=== PATIENT | male | born 1945 | race Caucasian/White ===

== ENCOUNTER 2023-07-25 11:15 | Outpatient (AMB) | payer MEDICARE, SELFPAY ==
--- NOTE | 2023-07-25 11:26 | HO.NEPHOV ---
HPI HPI Comments History of Present Illness Details I would the pleasure of seeing Mik in follow-up of his chronic kidney disease and hypertension. He has been having issues with his arthritis but is closely followed up by his [employer]. He also has been having atypical chest pains which has been worked up. He believes he has some acid reflux and is on PPI. His blood pressure is under good control with amlodipine and losartan. His renal functions have been stable. He maintains good hydration and seldom uses nonsteroidal anti-inflammatories. [facility] Medical History (Updated 08/11/23 @ 17:31 by Austin Fallon MD) Hypertension CKD (chronic kidney disease) stage 3, GFR 30-59 ml/min Surgical History (Updated 07/25/23 @ 11:30 by Alanis Ohara MA) History of vasectomy Social History (Updated 07/25/23 @ 11:30 by Alanis Ohara MA) Alcohol intake: never Patient Tobacco Use Status: Former Tobacco user Vital Signs 07/25/23 11:27 Height 5 ft 10 in Weight 182 lb 6 oz BMI 26.2 BP 130/60 Blood Pressure Location Lt brachial Position Sitting Pulse 100 Pulse Source Pulse Oximeter Pulse Oximetry (%) 95 Oxygen Delivery Method Room Air Physical Exam Vital Signs: Last Vital Signs Pulse 100 07/25/23 11:27 BP 130/60 07/25/23 11:27 Pulse Ox 95 07/25/23 11:27 Oxygen Delivery Method Room Air 07/25/23 11:27 BMI result Body Mass Index 26.2 Const General: comfortable and no acute distress Orientation/consciousness: patient oriented x3 HEENT Head: Yes normocephalic Mouth: Normal oral and palatal mucosa present Eyes EOM: EOMs intact bilaterally Neck Neck: Yes supple Resp Auscultation: clear to auscultation bilaterally Cardio Jugular venous distension: no JVD Rate: regular rate Heart sounds: Murmur heart sound present GI Palpation (GI): Soft to palpation Auscultation: normal bowel sounds General: Yes no CVA tenderness Back/Spine/Pelvis Back: no CVA tenderness Skin General skin exam: no rashes or lesions noted Neuro General: patient oriented x3 and moves all extremities Extrem General: Yes no pedal edema Assessment & Plan Assessment & Plan (1) CKD (chronic kidney disease) stage 3, GFR 30-59 ml/min: Code(s): N18.30 - Chronic kidney disease, stage 3 unspecified Qualifiers: Chronic kidney disease stage 3 subtype: stage 3a (GFR 45-59) Qualified Code(s): N18.31 - Chronic kidney disease, stage 3a (2) Hypertension: Code(s): I10 - Essential (primary) hypertension Qualifiers: Hypertension type: primary hypertension Qualified Code(s): I10 - Essential (primary) hypertension Plan Mik has CKD stage 3 for a long time. His renal functions are pretty stable. His blood pressure is at goal. On angiotensin receptor juan manuel which is tolerating well. His serum potassium has been normal. He maintains good hydration and seldom uses nonsteroidal anti-inflammatories. He should maintain a low-sodium diet. He plans to continue taking famotidine for his reflux issues as needed basis. He is also getting workup for atypical chest pains. I did not make any medication changes today. I answered all his questions. Follow-up lab work ordered and follow-up appointment was given. Orders: Orders Creatinine 07/25/23 N18.30 - Chronic kidney disease, stage 3 unspecified Electrolytes 07/25/23 N18.30 - Chronic kidney disease, stage 3 unspecified Protein Creatinine Ratio, Ur 07/25/23 N18.30 - Chronic kidney disease, stage 3 unspecified Blood Urea Nitrogen 07/25/23 N18.30 - Chronic kidney disease, stage 3 unspecified Coding Level of Care Code Est Pt Level 3 (07724) Diagnoses Stage 3a chronic kidney disease N18.31 Chronic kidney disease stage 3 subtype: stage 3a (GFR 45-59) Primary hypertension I10 Hypertension type: primary hypertension Results Reviewed Nephrology Results: No Data to Display
[2023-07-25 11:27] VITALS: BP 130/60; PULSE 100; O2SAT 95; BMI 26.2
== END 2023-07-25 12:15 | disposition home or self-care (01) ==
PROVIDERS: PCP Internal Medicine; Visit Provider Internal Medicine Nephrology
DX: N18.31 Chronic kidney disease, stage 3a (principal); I10 Essential (primary) hypertension
CPT/HCPCS: 99213

== ENCOUNTER → 2023-07-25 11:15 | Outpatient (BNVA) | payer MEDICARE, SELFPAY | PROVIDERS: PCP Internal Medicine; Visit Provider Internal Medicine Nephrology | DX: I12.9 Hypertensive chronic kidney disease with stage 1 through stage 4 chronic kidney disease, or unspecified chronic kidney disease (principal); N18.31 Chronic kidney disease, stage 3a | CPT/HCPCS: 99212 ==

== ENCOUNTER 2024-01-15 11:08 | Outpatient (REF) | payer MEDICARE, SELFPAY ==
[2024-01-15 13:58] LABS: Anion Gap 10 (12-20); Blood Urea Nitrogen 22 mg/dL (9-16); Carbon Dioxide 29 mmol/L (22-29); Chloride 105 mmol/L (96-108); Estimated Glomerular Filt Rate 49; Potassium 4.4 mmol/L (3.3-5.1); Sodium 140 mmol/L (135-145)
[2024-01-15 13:59] LABS: Creatinine Urine 120.24 mg/dL; Total Protein Urine Random < 7 mg/dL (<12)
== END 2024-01-15 11:09 | disposition home or self-care (01) ==
LOC: HO.10HDL 11:08
PROVIDERS: Visit Provider Internal Medicine Nephrology
DX: N18.30 Chronic kidney disease, stage 3 unspecified (principal)
CPT/HCPCS: 36415; 80051; 82565; 82570; 84156; 84520

== ENCOUNTER 2024-01-23 13:51 | Outpatient (AMB) | payer MEDICARE, SELFPAY ==
[2024-01-23 14:20] VITALS: BP 132/70; PULSE 72; O2SAT 98; BMI 25.9
--- NOTE | 2024-01-23 14:20 | HO.NEPHOV ---
Vital Signs 01/23/24 14:20 Height 5 ft 10 in Weight 180 lb 6 oz BMI 25.9 BP 132/70 Blood Pressure Location Lt brachial Position Sitting Pulse 72 Pulse Source Pulse Oximeter Pulse Oximetry (%) 98 Oxygen Delivery Method Room Air Intake Visit Reasons: 6 Months/ Conf [employer] Associate Required: No Accompanied by: Self / Same As Patient Allergies No Known Allergies Allergy (Verified 01/23/24 14:23) HPI Comments Details: I would the pleasure of seeing Mik in follow-up of his chronic kidney disease and hypertension. He has been having issues with his arthritis but is closely followed up by his Business Management Associate. He also has been having atypical chest pains which has gone now. His blood pressure is under good control with amlodipine and losartan. His renal functions have been stable. He maintains good hydration and seldom uses nonsteroidal anti-inflammatories. [facility] Medical History (Updated 08/11/23 @ 17:31 by Austin Fallon MD) Hypertension CKD (chronic kidney disease) stage 3, GFR 30-59 ml/min Surgical History History of vasectomy Social History Alcohol intake: never Patient Tobacco Use Status: Former Tobacco user Review of Systems Const All systems reviewed & are unremarkable except as noted in HPI and below Physical Exam Vital Signs: Last Vital Signs Pulse 72 01/23/24 14:20 BP 132/70 01/23/24 14:20 Pulse Ox 98 01/23/24 14:20 Oxygen Delivery Method Room Air 01/23/24 14:20 BMI result Body Mass Index 25.9 Const General: comfortable and no acute distress Orientation/consciousness: patient oriented x3 HEENT Head: Yes normocephalic Mouth: Normal oral and palatal mucosa present Eyes EOM: EOMs intact bilaterally Neck Neck: Yes supple Resp Auscultation: clear to auscultation bilaterally Cardio Jugular venous distension: no JVD Rate: regular rate GI Palpation (GI): Soft to palpation Auscultation: normal bowel sounds General: Yes no CVA tenderness Back/Spine/Pelvis Back: no CVA tenderness Skin General skin exam: no rashes or lesions noted Neuro General: patient oriented x3 and moves all extremities Extrem General: Yes no pedal edema Results Reviewed Nephrology Results: Sodium 140 mmol/L (135-145) 01/15/24 Potassium 4.4 mmol/L (3.3-5.1) 01/15/24 Chloride 105 mmol/L (96-108) 01/15/24 Carbon Dioxide 29 mmol/L (22-29) 01/15/24 BUN 22 mg/dL (9-16) H 01/15/24 Creatinine 1.40 mg/dL (0.5-1.4) 01/15/24 Urine Creatinine 120.24 mg/dL 01/15/24 Protein/Creatinin Ratio TNP 01/15/24 Assessment & Plan Assessment & Plan (1) CKD (chronic kidney disease) stage 3, GFR 30-59 ml/min: Code(s): N18.30 - Chronic kidney disease, stage 3 unspecified Category: Medical Qualifiers: Chronic kidney disease stage 3 subtype: stage 3a (GFR 45-59) Qualified Code(s): N18.31 - Chronic kidney disease, stage 3a (2) Hypertension: Code(s): I10 - Essential (primary) hypertension Category: Medical Qualifiers: Hypertension type: primary hypertension Qualified Code(s): I10 - Essential (primary) hypertension Plan Mik has CKD stage 3 for a long time. His renal functions are pretty stable. His blood pressure is at goal. On angiotensin receptor juan manuel which is tolerating well. His serum potassium has been normal. He maintains good hydration and seldom uses nonsteroidal anti-inflammatories. He should maintain a low-sodium diet. I did not make any medication changes today. I answered all his questions. Follow-up lab work ordered and follow-up appointment was given. Orders: Orders Blood Urea Nitrogen Today I10 - Essential (primary) hypertension, N18.31 - Chronic kidney disease, stage 3a Creatinine Today I10 - Essential (primary) hypertension, N18.31 - Chronic kidney disease, stage 3a Electrolytes Today I10 - Essential (primary) hypertension, N18.31 - Chronic kidney disease, stage 3a Coding Level of Care Code Est Pt Level 4 (38087) Diagnoses Stage 3a chronic kidney disease N18.31 Chronic kidney disease stage 3 subtype: stage 3a (GFR 45-59) Primary hypertension I10 Hypertension type: primary hypertension
== END 2024-01-23 14:47 | disposition home or self-care (01) ==
PROVIDERS: PCP Internal Medicine; Visit Provider Internal Medicine Nephrology
DX: N18.31 Chronic kidney disease, stage 3a (principal); I10 Essential (primary) hypertension
CPT/HCPCS: 99214

== ENCOUNTER → 2024-01-23 13:51 | Outpatient (BNVA) | payer MEDICARE, SELFPAY | PROVIDERS: PCP Internal Medicine; Visit Provider Internal Medicine Nephrology | DX: I12.9 Hypertensive chronic kidney disease with stage 1 through stage 4 chronic kidney disease, or unspecified chronic kidney disease (principal); N18.31 Chronic kidney disease, stage 3a | CPT/HCPCS: 99212 ==

== ENCOUNTER 2024-05-20 09:41 | Outpatient (REF) | payer MEDICARE, SELFPAY ==
--- OUTSIDE RECORDS SUMMARY | 2024-05-20 09:46 | XMS_ITS | Continuity of Care Document ---
Author Organization [facility] Adult Address [address] [place] [address]- Care Team Providers Care Nuclear Officer Name Role Phone Hector BISWAS, Tommy Primary Care Physician Encounter [facility] [place] Date(s): 03/30/24 - 04/29/24 [facility] Adult [address] [place] [id number] Encounter Type: Triage Allergies, Adverse Reactions, Alerts Substance Criticality Severity Reaction Reaction Severity Status angiotensin converting enzym e inhibitors Cough Active Immunizations Given and Recorded Vaccine Date Status Refusal Reason RSV vaccine preF3, recombinant 07/04/23 Recorded pneumococcal 20-valent conjugate vaccine 1 06/06/23 Given influenza virus vaccine, inactivated 03/21/23 Jamar rded influenza virus vaccine, inactivated 03/11/22 Jamar rded influenza virus vaccine, inactivated 03/15/21 Jamar rded influenza virus vaccine, inactivated 03/14/20 Jamar rded influenza virus vaccine, inactivated 04/16/19 Jamar rded influenza virus vaccine, inactivated 05/04/18 Give n influenza virus vaccine, inactivated 2 04/16/17 Gi william influenza virus vaccine, inactivated 04/15/16 Give n influenza virus vaccine, inactivated 04/10/15 Give n influenza virus vaccine, inactivated 04/08/14 Give n influenza virus vaccine, inactivated 04/07/13 Give n influenza virus vaccine, inactivated 3 04/01/12 Gi william influenza virus vaccine, inactivated 4 04/06/07 Gi william influenza virus vaccine, inactivated 5 03/26/06 Gi william zoster vaccine, inactivated 12/12/22 Recorded zoster vaccine, inactivated 07/08/22 Recorded [id number] bivalent booster vax 03/26/22 Recorded SARS-CoV-2 (COVID-19) mRNA-1273 vaccine 04/23/21 R ecorded SARS-CoV-2 (COVID-19) mRNA-1273 vaccine 09/06/20 R ecorded SARS-CoV-2 (COVID-19) mRNA-1273 vaccine 08/09/20 R ecorded tetanus/diphtheria/pertussis, acel(Tdap) 10/20/20 Given tetanus/diphtheria/pertussis, acel(Tdap) 03/28/11 Given Influenza Virus Vaccine (oldterm) 04/09/20 Recorde d Influenza Virus Vaccine (oldterm) 03/09/19 Recorde d Influenza Virus Vaccine (oldterm) 6 04/23/08 Given pneumococcal 13-valent vaccine 04/10/15 Given pneumococcal 23-valent vaccine 04/07/13 Given Zoster Vaccine Live 05/01/09 Given diphtheria-tetanus toxoids (DT) 08/10/99 Given 1Result Comment: PCV [address] [facility] [id number] 2Result Comment: [facility] [id number] 3Admin Note: VIS GIVEN 4Admin Note: given by dr chan 5Admin Note: EXP 01/15/06 - 12/06/06 6Admin Note: given by lara farrar Medications amLODIPine 2.5 mg oral tablet 1 tablet = 2.5 mg, By Mouth, Daily, # 30 tablet, 0 Refills, Maintenance, 12/12/22 10:02:00 AM EDT, Tablet, Partial fill upon patient request if the prescription is for a schedule II opioid drug. Start Date: 12/12/22 Status: Ordered Quantity: 30.0 Unit: tablet Repeat number: 1 famotidine 20 mg oral tablet 20 mg, 1, tablet, By Mouth, Daily, # 90 tablet, Refills 1, Tot. Refills 1, Maintenance, 03/28/24 10:34:00 AM EDT, Route to Pharmacy Electronically, [id number], Partial fill upon patient request if the prescription is for a schedule II opioid drug., 178, cm, 03/23/24 15:33:00 EDT, Height, 81.2, kg, 12/31/23 9:10:00 EDT, Dry Weight Start Date: 03/28/24 Status: Ordered Quantity: 90.0 Unit: tablet Repeat number: 2 fluticasone 50 mcg/inh nasal spray 2 sprays, Nares, Both, Daily, # 16 Gm, 11 Refills, Maintenance, 06/20/22 9:43:00 AM EST, [place], [facility]/pharmacy #[id number], Partial fill upon patient request if the prescription is for a schedule II opioid drug., 2 sprays Nares, Both Daily, 179, cm, 06/20/22 9:05:00 EST, Height, 96.8, kg, 10/20/20 22:42:00 EDT, Dry Weight Start Date: 06/20/22 Status: Ordered Quantity: 16.0 Unit: g Repeat number: 12 Indication: Other allergic rhinitis leflunomide 20 mg oral tablet 1 tablet = 20 mg, By Mouth, Daily, Maintenance, 12/12/22 10:14:00 AM EDT, Partial fill upon patient request if the prescription is for a schedule II opioid drug. Start Date: 12/12/22 Status: Ordered Repeat number: 1 losartan 100 mg oral tablet 1 tablet = 100 mg, By Mouth, Daily, # 90 tablet, 0 Refills, Maintenance, 05/31/21 11:03:00 AM EST, Tablet, Partial fill upon patient request if the prescription is for a schedule II opioid drug. Start Date: 05/31/21 Status: Ordered Quantity: 90.0 Unit: tablet Repeat number: 1 ProAir HFA 90 mcg/inh inhalation aerosol with adapter 2, puffs, Inhalation, Every 4 hours, PRN, # 1 each, Refills 1, Tot. Refills 1, Maintenance, 02/12/23 2:34:00 PM EDT, Aerosol, Route to Pharmacy Electronically, [id number], [facility]/pharmacy #[id number], 179, cm, 12/12/22 10:03:00 EDT, Height Start Date: 02/12/23 Status: Ordered Quantity: 1.0 Unit: each Repeat number: 2 Vitamin D3 1000 intl units oral tablet 1 tablet = 1,000 International_Units, By Mouth, Daily, # 30 tablet, 0 Refills, Maintenance, 04/08/14 9:48:36 AM EDT, Tablet Start Date: 04/08/14 Status: Ordered Quantity: 30.0 Unit: tablet Repeat number: 1 Problem List Condition Confirmation Course Effective Dates Status H ealth Status Informant Centrilobular emphysema Confirmed 2015 Active Stage 3a chronic kidney disease (CKD) Confirmed Active Esophageal reflux (GERD) Confirmed 04/07/13 Active Interstitial lung disease Confirmed Active Left lower lobe pulmonary nodule Confirmed Active Psoriatic arthritis Confirmed Active 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 Sex Sex Representation Male (finding) Patient Care team information Care Team Personnel Name: Melanie Lai RN Position: [facility] RN Member Role: Primary Care Nurse Name: Vanessa Faith RN Position: [facility] Onco RN Member Role: Primary Care Nurse Name: Martita Houser RN Position: [facility] Onco RN Member Role: Primary Care Nurse Name: Alanis Ohara Position: [facility] AMB Nurse Member Role: Lifetime Consulting Physician Name: Eduar Garsia RN Position: [facility] Onco RN Member Role: Primary Care Nurse Name: Tommy Young MD Position: [facility] Physician - Primary Care Member Role: PCP Address: [address] [place] [id number] Telecom: Care Team Related Persons Name: NAKUL SABILLON Name: TITO SABILLON Insurance Providers Guarantor name: WILL SABILLON Health Plan Information #: 1 Payer: MEDICARE PART B OUTPT Member Number: NA Policy Number: NA Group Number: NA Health Plan Information #: 2 Payer: [employer] SUP Member Number: NA Policy Number: NA Group Number: NA
--- OUTSIDE RECORDS SUMMARY | 2024-05-20 09:46 | XMS_ITS | Continuity of Care Document ---
Author Organization [facility] Adult Address [address] [place] [address]- Care Team Providers Care Range Mounter Name Role Phone Hector BISWAS, Tommy Primary Care Physician Encounter [facility] [place] Date(s): 03/24/24 - 04/23/24 [facility] Adult [address] [place] [id number] Encounter Type: Triage Allergies, Adverse Reactions, Alerts [...] 12/12/22 Recorded zoster vaccine, inactivated 07/08/22 Recorded [id number] bivalent booster vax 03/26/22 Recorded SARS-CoV-2 (COVID-19) [...] (DT) 08/10/99 Given 1Result Comment: PCV 20 [facility] [id number] 2Result Comment: [facility] [id number] 3Admin Note: VIS GIVEN 4Admin Note: given [...] 11 Refills, Maintenance, 06/20/22 9:43:00 AM EST, [place], [facility]/pharmacy #[id number], Partial fill upon patient request [...] PM EDT, Aerosol, Route to Pharmacy Electronically, [id number], [facility]/pharmacy #[id number], 179, cm, 12/12/22 10:03:00 EDT, [...] Team Personnel Name: Melanie Lai RN Position: [facility] RN Member Role: Primary Care Nurse Name: Vanessa Faith RN Position: [facility] Onco RN Member Role: Primary Care Nurse Name: Martita Houser RN Position: [facility] Onco RN Member Role: Primary Care Nurse Name: Alanis Ohara Position: [facility] AMB Nurse Member Role: Lifetime Consulting Physician Name: Eduar Garsia RN Position: [facility] Onco RN Member Role: Primary Care Nurse Name: Tommy Young MD Position: [facility] Physician - Primary Care Member Role: PCP Address: [address] [place] [id number] Telecom: Care Team Related Persons Name: NAKUL SABILLON Name: TITO SABILLON Insurance Providers Guarantor name: WILL SABILLON Health Plan Information #: 1 Payer: MEDICARE PART B OUTPT Member Number: NA Policy Number: NA Group Number: NA Health Plan Information #: 2 Payer: [employer] SUP Member Number: NA Policy Number: NA Group Number: NA
--- OUTSIDE RECORDS SUMMARY | 2024-05-20 09:46 | XMS_ITS | Continuity of Care Document ---
Author Organization [facility] Adult Address [address] [place] [address]- Care Team Providers Care Police Reserves Commander Name Role Phone Hector BISWAS, Tommy Primary Care Physician Encounter [facility] [place] Date(s): 03/28/24 - 04/27/[address] [address]- Encounter Type: Triage Allergies, Adverse Reactions, Alerts [...] 12/12/22 Recorded zoster vaccine, inactivated 07/08/22 Recorded [id number] bivalent booster vax 03/26/22 Recorded SARS-CoV-2 (COVID-19) [...] (DT) 08/10/99 Given 1Result Comment: PCV 20 [facility] [id number] 2Result Comment: [facility] [id number] 3Admin Note: VIS GIVEN 4Admin Note: given [...] 11 Refills, Maintenance, 06/20/22 9:43:00 AM EST, [place], [facility]/pharmacy #[id number], Partial fill upon patient request if [...] PM EDT, Aerosol, Route to Pharmacy Electronically, [id number], [facility]/pharmacy #[id number], 179, cm, 12/12/22 10:03:00 EDT, Height [...] Team Personnel Name: Melanie Lai RN Position: [facility] RN Member Role: Primary Care Nurse Name: Vanessa Faith RN Position: [facility] Onco RN Member Role: Primary Care Nurse Name: Martita Houser RN Position: [facility] Onco RN Member Role: Primary Care Nurse Name: Alanis Ohara Position: [facility] AMB Nurse Member Role: Lifetime Consulting Physician Name: Eduar Garsia RN Position: [facility] Onco RN Member Role: Primary Care Nurse Name: Tommy Young MD Position: [facility] Physician - Primary Care Member Role: PCP Address: [address] [place] [address] Telecom: Care Team Related Persons Name: NAKUL SABILLON Name: TITO SABILLON Insurance Providers Guarantor name: WILL SABILLON Health Plan Information #: 1 Payer: MEDICARE PART B OUTPT Member Number: NA Policy Number: NA Group Number: NA Health Plan Information #: 2 Payer: [employer] SUP Member Number: NA Policy Number: NA Group Number: NA
--- OUTSIDE RECORDS SUMMARY | 2024-05-20 09:46 | XMS_ITS | Continuity of Care Document ---
Author Organization [facility] Adult Address [address] [place] [address]- Care Team Providers Care Cash Application Clerk Name Role Phone Hector BISWAS, Tommy Primary Care Physician Encounter [facility] [place] Date(s): 03/20/24 - 04/19/24 [facility] Adult [address] [place] [address]- Allergies, Adverse Reactions, Alerts Substance Reaction Severity Status angiotensin converting enzyme inhibitors Cough Active Immunizations Given and Recorded [...] 12/12/22 Recorded zoster vaccine, inactivated 07/08/22 Recorded [id number] bivalent booster vax 03/26/22 Recorded SARS-CoV-2 (COVID-19) [...] (DT) 08/10/99 Given 1Result Comment: PCV 20 [facility] [id number] 2Result Comment: [facility] [id number] 3Admin Note: VIS GIVEN 4Admin Note: given by dr chan 5Admin Note: EXP 01/15/06 - 12/06/06 6Admin Note: given by lara farrar Medications amLODIPine 2.5 mg oral tablet 1 tablet = 2.5 mg, By Mouth, Daily, # 30 tablet, 0 Refills, Maintenance, 12/12/22 10:02:00 EDT, Tablet, Partial fill upon patient request if the prescription is for a schedule II opioid drug. Start Date: 12/12/22 Status: Ordered famotidine 20 mg oral tablet 20 mg, 1, tablet, By Mouth, Daily, # 90 tablet, Refills 1, Tot. Refills 1, Maintenance, 03/28/24 10:34:00 EDT, Route to Pharmacy Electronically, [facility] #[id number], Partial fill upon patient request if the prescription is for a schedule II opioi... Start Date: 03/28/24 Status: Ordered fluticasone 50 mcg/inh nasal spray 2 sprays, Nares, Both, Daily, # 16 Gm, 11 Refills, Maintenance, 06/20/22 9:43:00 EST, [place], [facility]/pharmacy #[id number], Partial fill upon patient request if the prescription is for a schedule II opioid drug., 2 sprays Nares, Both Daily, 179, cm, 06/20/22 9:0... Start Date: 06/20/22 Status: Ordered leflunomide 20 mg oral tablet 1 tablet = 20 mg, By Mouth, Daily, Maintenance, 12/12/22 10:14:00 EDT, Partial fill upon patient request if the prescription is for a schedule II opioid drug. Start Date: 12/12/22 Status: Ordered losartan 100 mg oral tablet 1 tablet = 100 mg, By Mouth, Daily, # 90 tablet, 0 Refills, Maintenance, 05/31/21 11:03:00 EST, Tablet, Partial fill upon patient request if the prescription is for a schedule II opioid drug. Start Date: 05/31/21 Status: Ordered ProAir HFA 90 mcg/inh inhalation aerosol with adapter 2, puffs, Inhalation, Every 4 hours, PRN, # 1 each, Refills 1, Tot. Refills 1, Maintenance, 02/12/23 14:34:00 EDT, Aerosol, Route to Pharmacy Electronically, [id number], [facility]/pharmacy #[id number], 179, cm, 12/12/22 10:03:00 EDT, Height Start Date: 02/12/23 Status: Ordered Vitamin D3 1000 intl units oral tablet 1 tablet = 1,000 International_Units, By Mouth, Daily, # 30 tablet, 0 Refills, Maintenance, 04/08/14 9:48:36, Tablet Start Date: 04/08/14 Status: Ordered Problem List Condition Confirmation Course Effective Dates [...] quit 1990, 20 pack yr history. Sex Patient Care team information Care Team Personnel Name: Melanie Lai RN Position: S RN Member Role: Primary Care Nurse Name: Vanessa Faith RN Position: [facility] RN Member Role: Primary Care Nurse Name: Martita Houser RN Position: [facility] RN Member Role: Primary Care Nurse Name: Alanis Ohara Position: [facility] AMB Nurse Member Role: Lifetime Consulting Physician Name: Eduar Garsia RN Position: [facility] Onco RN Member Role: Primary Care Nurse Name: Tommy Young MD Position: [facility] Physician - Primary Care Member Role: PCP Address: Address: [address] [place] [address] [address] [place] [address]- Care Team Related Persons Name: NAKUL SABILLON Name: TITO SABILLON Address: [address] [place] [address]
--- OUTSIDE RECORDS SUMMARY | 2024-05-20 09:46 | XMS_ITS | Continuity of Care Document ---
Author Organization [facility] Address [address] [place] [address]- Care Team Providers Care Portable Track Crew Chief Name Role Phone Hector BISWAS, Tommy Primary Care Physician Encounter [facility] Date(s): 03/24/24 - 04/23/24 [facility] [address] [place] [id number] Encounter Type: Triage Allergies, Adverse Reactions, [...] 12/12/22 Recorded zoster vaccine, inactivated 07/08/22 Recorded [id number] bivalent booster vax 03/26/22 Recorded SARS-CoV-2 (COVID-19) [...] (DT) 08/10/99 Given 1Result Comment: PCV 20 [facility] [id number] 2Result Comment: [facility] [id number] 3Admin Note: VIS GIVEN 4Admin Note: given [...] 11 Refills, Maintenance, 06/20/22 9:43:00 AM EST, [place], [facility]/pharmacy #[id number], Partial fill upon patient request [...] PM EDT, Aerosol, Route to Pharmacy Electronically, [id number], [facility]/pharmacy #[id number], 179, cm, 12/12/22 10:03:00 EDT, [...] Team Personnel Name: Melanie Lai RN Position: [facility] RN Member Role: Primary Care Nurse Name: Vanessa Faith RN Position: [facility] Onco RN Member Role: Primary Care Nurse Name: Martita Houser RN Position: [facility] Onco RN Member Role: Primary Care Nurse Name: Alanis Ohara Position: [facility] AMB Nurse Member Role: Lifetime Consulting Physician Name: Eduar Garsia RN Position: [facility] Onco RN Member Role: Primary Care Nurse Name: Tommy Young MD Position: [facility] Physician - Primary Care Member Role: PCP Address: [address] [place] [address] Telecom: Care Team Related Persons Name: NAKUL SABILLON Name: TITO SABILLON Insurance Providers Guarantor name: WILL SABILLON Health Plan Information #: 1 Payer: MEDICARE PART B OUTPT Member Number: NA Policy Number: NA Group Number: NA Health Plan Information #: 2 Payer: [employer] SUP Member Number: NA Policy Number: NA Group Number: NA
--- OUTSIDE RECORDS SUMMARY | 2024-05-20 09:46 | XMS_ITS | Continuity of Care Document ---
Author Organization [facility] Address [address] [place] [address]- Care Team Providers Care Industrial Staff Nurse Name Role Phone Hector BISWAS, Tommy Primary Care Physician Encounter [facility] Date(s): 03/29/24 - 04/28/[address] [address]- Encounter Type: Triage Allergies, Adverse Reactions, Alerts [...] 12/12/22 Recorded zoster vaccine, inactivated 07/08/22 Recorded [id number] bivalent booster vax 03/26/22 Recorded SARS-CoV-2 (COVID-19) [...] (DT) 08/10/99 Given 1Result Comment: PCV 20 [facility] [id number] 2Result Comment: [facility] [id number] 3Admin Note: VIS GIVEN 4Admin Note: given [...] 11 Refills, Maintenance, 06/20/22 9:43:00 AM EST, [place], [facility]/pharmacy #[id number], Partial fill upon patient request if [...] PM EDT, Aerosol, Route to Pharmacy Electronically, [id number], [facility]/pharmacy #[id number], 179, cm, 12/12/22 10:03:00 EDT, Height [...] Team Personnel Name: Melanie Lai RN Position: [facility] RN Member Role: Primary Care Nurse Name: Vanessa Faith RN Position: [facility] Onco RN Member Role: Primary Care Nurse Name: Martita Houser RN Position: [facility] Onco RN Member Role: Primary Care Nurse Name: Alanis Ohara Position: [facility] AMB Nurse Member Role: Lifetime Consulting Physician Name: Eduar Garsia RN Position: [facility] Onco RN Member Role: Primary Care Nurse Name: Tommy Young MD Position: [facility] Physician - Primary Care Member Role: PCP Address: [address] [place] [address] Telecom: Care Team Related Persons Name: NAKUL SABILLON Name: TITO SABILLON Insurance Providers Guarantor name: WILL SABILLON Health Plan Information #: 1 Payer: MEDICARE PART B OUTPT Member Number: NA Policy Number: NA Group Number: NA Health Plan Information #: 2 Payer: [employer] SUP Member Number: NA Policy Number: NA Group Number: NA
== END 2024-05-20 09:42 | disposition home or self-care (01) ==
LOC: HO.BBR 09:41
PROVIDERS: PCP Internal Medicine; Visit Provider Hospitalist
DX: Z13.89 Encounter for screening for other disorder (principal)

== ENCOUNTER 2024-06-22 10:06 | Outpatient (REF) | payer MEDICARE, SELFPAY ==
--- OUTSIDE RECORDS SUMMARY | 2024-06-22 11:33 | XMS_ITS | Continuity of Care Document ---
Author Organization [facility] Adult Address [address] [place] [address]- Care Team Providers Care Foundry Tender Name Role Phone Tommy Young MD Primary Care Phys[id number]10[facility] - 06/17/[address] [address]- Encounter Diagnosis Medicare annual wellness visit, subsequent(Discharge Diagnosis) - 06/10/24 HTN (hypertension)(Discharge Diagnosis) - 06/10/24 Esophageal reflux (GERD)(Discharge Diagnosis) - 06/10/24 Stage 3a chronic kidney disease (CKD)(Discharge Diagnosis) - 06/10/24 Interstitial lung disease(Discharge Diagnosis) - 06/10/24 Centrilobular emphysema(Discharge Diagnosis) - 06/10/24 Psoriatic arthritis(Discharge Diagnosis) - 06/10/24 Stenosis of right subclavian artery(Discharge Diagnosis) - 06/10/24 Hemochromatosis(Discharge Diagnosis) - 06/10/24 Attending Physician: Tommy Young MD Encounter Type: Office Visit Allergies, Adverse Reactions, Alerts Substance Criticality Severity Reaction Reaction Severity Status angiotensin converting enzym e inhibitors Cough Active Immunizations Given and Recorded Vaccine Date Status Refusal Reason influenza virus vaccine, inactivated 1 06/10/24 Gi william influenza virus vaccine, inactivated 03/21/23 Jamar rded [...] virus vaccine, inactivated 5 03/26/06 Gi william RSV vaccine preF3, recombinant 07/04/23 Recorded pneumococcal 20-valent conjugate vaccine 6 06/06/23 Given zoster vaccine, inactivated 12/12/22 Recorded zoster vaccine, inactivated 07/08/22 Recorded [id number] bivalent booster vax 03/26/22 Recorded SARS-CoV-2 (COVID-19) mRNA-1273 vaccine 04/23/21 R ecorded SARS-CoV-2 (COVID-19) mRNA-1273 vaccine 09/06/20 R ecorded SARS-CoV-2 (COVID-19) mRNA-1273 vaccine 08/09/20 R ecorded tetanus/diphtheria/pertussis, acel(Tdap) 10/20/20 Given tetanus/diphtheria/pertussis, acel(Tdap) 03/28/11 Given Influenza Virus Vaccine (oldterm) 04/09/20 Recorde d Influenza Virus Vaccine (oldterm) 03/09/19 Recorde d Influenza Virus Vaccine (oldterm) 7 04/23/08 Given pneumococcal 13-valent vaccine 04/10/15 Given pneumococcal 23-valent vaccine 04/07/13 Given Zoster Vaccine Live 05/01/09 Given diphtheria-tetanus toxoids (DT) 08/10/99 Given 1Result Comment: [facility] [id number] 2Result Comment: [facility] [id number] 3Admin Note: VIS GIVEN 4Admin Note: given by dr chan 5Admin Note: EXP 01/15/06 - 12/06/06 6Result Comment: PCV 20 [facility] [id number] 7Admin Note: given by lara farrar Medications amLODIPine [...] Daily, # 16 Gm, 11 Refills, Maintenance, 05/10/24 11:14:00 AM EST, [place], [facility], Partial fill upon patient request if the prescription is for a schedule II opioid drug., 2 sprays Nares, Both Daily, 178, cm, 05/10/24 10:54:00 EST, Height, 78.6, kg, 05/05/24 15:02:00 EST, Dry Weight Start Date: 05/10/24 Status: Ordered Quantity: 16.0 Unit: g Repeat [...] Quantity: 90.0 Unit: tablet Repeat number: 1 Vitamin D3 1000 intl units oral tablet 1 tablet = 1,000 International_Units, By Mouth, Daily, # 30 tablet, 0 Refills, Maintenance, 04/08/14 9:48:36 AM EDT, Tablet Start Date: 04/08/14 Status: Ordered Quantity: 30.0 Unit: tablet Repeat number: 1 Problem List Condition Confirmation Course Effective Dates Status H ealth Status Informant Centrilobular emphysema Confirmed 2016 Active Stage 3a chronic kidney disease (CKD) Confirmed Active Esophageal reflux (GERD) Confirmed 04/07/13 Active Hemochromatosis Confirmed Active HTN (hypertension) Confirmed Active Interstitial lung disease Confirmed Active Psoriatic arthritis Confirmed Active Stenosis of right subclavian artery Confirmed 06/20/20 Active Diagnosis Diagnosis Type Effective Dates Health Status Clinical Service Informant Medicare annual wellness visit, subsequent Discharge Diagnosis 06/10/24 HTN (hypertension) Discharge Diagnosis 06/10/24 Esophageal reflux (GERD) Discharge Diagnosis 06/10/24 Interstitial lung disease Discharge Diagnosis 06/10/24 Centrilobular emphysema Discharge Diagnosis 06/10/24 Stage 3a chronic kidney disease (CKD) Discharge Diagnosis 06/10/24 Psoriatic arthritis Discharge Diagnosis 06/10/24 Stenosis of right subclavian artery Discharge Diagnosis 06/10/24 Hemochromatosis Discharge Diagnosis 06/10/24 Vital Signs Most recent to oldest [Reference Range]: 1 Height 176.9 cm (06/10/24 3:02 PM) Weight 79.8 kg (06/10/24 3:02 PM) Oxygen Saturation [94-100 %] 98 % (06/10/24 3:02 PM) Pulse Rate [55-90 bpm] 99 bpm *H* (06/10/24 3:02 PM) Body Mass Index [18.5-24.99 kg/m2] 25.5 kg/m2 *H* (06/10/24 3:02 PM) Blood Pressure [90-138/55-84 mm Hg] 125/ 71mm Hg (06/10/24 3:02 PM) Temperature [96.8-100.4 DegF] 98.1 DegF (06/10/24 3:02 PM) Mode of Delivery (Oxygen) Room air (06/10/24 3:02 PM) Blood pressure sites Arm, left (06/10/24 3:02 PM) Temperature Route Oral (06/10/24 3:02 PM) Weight Obtained Via Standing scale (06/10/24 3:02 PM) Social History Social History Type Response Tobacco Other: quit 1990, 20 pack yr history. Sex Sex Representation Male (finding) Note * AbdiasNgoc scott: PERFORM Event Display: Patient Education/Instruction Authored Date: [id number] Ambulatory Adult Visit Summary [facility] [address] [place] [address] Name: WILL SABILLON : 1945?? Visit: 06/10/2024 14:56?? Ambulatory Visit Instructions ?? Your Care Team Primary Care Provider Tommy Young MD? This Visit Provider Tommy Young MD Your Diagnosis Medicare annual wellness visit, subsequent HTN (hypertension) Esophageal reflux (GERD) Interstitial lung disease Centrilobular emphysema Stage 3a chronic kidney disease (CKD) Psoriatic arthritis Stenosis of right subclavian artery Hemochromatosis Vitals Signs Temperature: 98.1 DegF Height: 176.9 cm Pulse Rate:??99 bpm??High Weight: 79.8 kg Systolic Blood Pressure: 125 mm Hg Body Mass Index:??25.5 kg/m2??High Diastolic Blood Pressure: 71 mm Hg Body surface area: 1.98 Oxygen Saturation: 98 % ?? What to do next Scheduled Follow-Up Appointments 2024 1:00 PM EST ?? With: Lurdes Knowles RD Where: [facility] Status: Pending Follow-Up Appointments Follow Up with??Tommy Young MD When:??07/05/2025 11:25 AM EST Why: MEDICARE WELLNESS VISIT Where: [address] [place] [address]- Follow Up with??Tommy Young MD When:??12/16/2024 10:15 AM EDT Why: 6 MONTH FOLLOW UP Where: [address] [place] [address]- Future Orders CBC w/ Differential - Routine, Once, 03/01/24 3:00:00 EDT, Single or Recurring Future Order, [facility], Blood?? Iron + Iron Binding Capacity - Routine, Once, 03/01/24 3:00:00 EDT, Single or Recurring Future Order, [facility], Blood?? Ferritin - Routine, Once, 03/01/24 3:00:00 EDT, Single or Recurring Future Order, [facility], Blood?? Vitamin B12 Level - Routine, Once, 03/01/24 3:00:00 EDT, Single or Recurring Future Order, [facility],Blood?? Folate Level - Routine, Once, 03/01/24 3:00:00 EDT, Single or Recurring Future Order, [facility], Blood?? CBC w/ Differential - Routine, Once, 04/09/24 3:00:00 EDT, Single or Recurring Future Order, [facility], Blood?? Iron + Iron Binding Capacity - Routine, Once, 04/09/24 3:00:00 EDT, Single or Recurring Future Order, [facility], Blood?? Ferritin - Routine, Once, 04/09/24 3:00:00 EDT, Single or Recurring Future Order, [facility], Blood?? Vitamin B12 Level - Routine, Once, 04/09/24 3:00:00 EDT, Single or Recurring Future Order, [facility],Blood?? Comprehensive Metabolic Panel - Routine, Once, 04/15/24 13:06:00 EST, Future Order, [facility], Blood?? CBC - Routine, Once, 04/15/24 13:06:00 EST, Future Order, [facility], Blood?? D Dimer - Routine, Once, 04/15/24 13:06:00 EST, Future Order, [facility], Blood?? Tissue Transglutaminase Ab IgA - Routine, Once, 04/15/24 13:06:00 EST, Future Order, [facility], Blood?? CBC w/ Differential - Routine, Once, 05/09/24 3:00:00 EST every 1 months for 3 months, Single or Recurring Future Order, [facility], Blood?? Iron + Iron Binding Capacity - Routine, Once, 05/09/24 3:00:00 EST every 1 months for 3 months, Single or Recurring Future Order, [facility], Blood?? Ferritin - Routine, Once, 05/09/24 3:00:00 EST every 1 months for 3 months, Single or Recurring Future Order, [facility], Blood?? Medications The list below reflects the information in our records and provided by you today along with any changes made during this visit. Please continue your medications until treatment is completed or stopped by your provider. If this is different from the information you have or there are other questions,please contact the prescribing provider. What How Much When Why Instructions Unchanged Amlodipine (amLODIPine 2.5 mg oral tablet) 1 tab(s) Oral Daily Unchanged Cholecalciferol (Vitamin D3 1000 intl units oral tablet) 1 tab(s) Oral Daily Unchanged Famotidine (famotidine 20 mg oral tablet) 1 tab(s) Oral Daily Unchanged Fluticasone Nasal (fluticasone 50 mcg/ inh nasal spray) 2 spray(s) Nares, Both Daily Perennial allergic rhinitis Unchanged Leflunomide (leflunomide 20 mg oral tablet) 1 tab(s) Oral Daily Unchanged Losartan (losartan 100 mg oral tablet) 1 tab(s) Oral Daily ?? What How Much When Comments Stop Taking Albuterol (ProAir HFA 90 mcg/ inh inhalation aerosol with adapter) 2 puff(s) Inhalation Every 4 hours as needed for Wheezing/Shortness of Breath Medications and Immunizations Administered Immunizations Given During Visit Given Vaccine Date influenza virus vaccine, inactivated 06/10/2024 Comments : [facility] [id number] Medications Given During Visit Medication ?? Dose ?? Route ?? Last Dose Times ?? influenza virus vaccine, inactivated?0.50 mL?? Intramuscular?? 10-JUN-2024 15:15:00.00?? Allergies (NKA means No Known Allergies) angiotensin converting enzyme inhibitors??(Cough) Common Emergency Awareness Tips IS IT A STROKE? Act FAST and Check for these signs: FACE Does the face look uneven? ARM Does one arm drift down? SPEECH Does their speech sound strange? TIME Call at any sign of stroke ?? Heart Attack Signs Chest discomfort: Most heart attacks involve discomfort in the center of the chest and lasts more than a few minutes, or goes away and comes back. It can feel like uncomfortable pressure, squeezing, fullness or pain. Discomfort in upper body: Symptoms can include pain or discomfort in one or both arms, back, neck, jaw or stomach. Shortness of breath: With or without discomfort. Other signs: Breaking out in a cold sweat, nausea, or lightheaded. Remember, MINUTES DO MATTER. If you experience any of these heart attack warning signs, call to get immediate medical attention! ?? Smoking can increase your chances of developing chronic health problems and can cause harmful effects to other family members in your house. If you smoke, you are strongly encouraged to quit. Please call [facility] at [phone] or [phone] ([phone]) or log in to [email or web address] for referrals to smoking cessation programs. ?? The National Suicide Prevention Hotline is available 30/12 if you or someone you know needs to find a reason to keep living. By calling 0-557-695-Case Rover ([phone]) you'll be connected to a skilled, trained counselor at a crisis center in your area. [facility] You can view and manage your care through the patient portal or by using a health care noreen of your choosing. [employer] is a website that allows you to securely view your medical information including your hospital discharge summary, office visit summaries, medications and follow-up visits. You can also request appointments, renew medications, and request access to your medical information using a health care noreen of your choosing, or just ask a question. You can enroll at [email or web address] or register during your next office visit. [facility], in keeping with [facility] guidance, no longer requires face masks for staff, patientsor visitors in most situations. Similiar to time spent indoors at other locations, there is the chance that you were exposed to repiratory viruses during your time with us (such as flu or COVID-19). If you develop symptoms concerning for a viral respiratory infection, please seek testing (and treatment if indicated) from your medical provider or home test kit. ?? Disclaimer: The information provided is of a general nature and is intended to be used in conjunction with the recommendations and advice of your health care practitioner. Every effort has been made to ensure that the information provided is accurate and complete at the time it is provided to you however, as your needs change, or, as new information becomes available, different or additional instructions may be required. ?? If you have questions, please consult with your primary care provider or pharmacist, as appropriate. This information is not intended to serve as substitution for assessment and evaluation by a qualified health care provider. If you do not have a primary care provider, you may find a [facility] provider by calling [facility] at [phone]. Patient Care team information Care Team Personnel Name: Melanie Lai RN Position: [facility] RN Member Role: Primary Care Nurse Name: Vanessa Faith RN Position: [facility] Onco RN Member Role: Primary Care Nurse Name: Martita Houser RN Position: [facility] Onco RN Member Role: Primary Care Nurse Name: Alanis Ohara Position: [facility] AMB Nurse Member Role: Lifetime Consulting Physician Name: Eduar Garsia RN Position: [facility] Onco RN Member Role: Primary Care Nurse Name: Tommy Young MD Position: [facility] Physician - Primary Care Member Role: PCP Address: [address] [place] [id number] Telecom: Care Team Related Persons Name: NAKUL SABILLON Name: TITO SABILLON Insurance Providers Guarantor name: WILL SABILLON Health Plan Information #: 1 Payer: MEDICARE PART B OUTPT Member Number: [id number] Policy Number: NA Group Number: NA Health Plan Information #: 2 Payer: [facility] SUP Member Number: [id number] Policy Number: NA Group Number: NA
--- OUTSIDE RECORDS SUMMARY | 2024-06-22 11:33 | XMS_ITS | Continuity of Care Document ---
Author Organization [facility] Address [address] [place] [address]- Care Team Providers Care Carpenter Wooden Tank Erecting Name Role Phone Tommy Young MD Primary Care Physician Encounter [facility] Date(s): 05/10/24 - 06/09/24 [facility] [address] [place] [id number] Attending Physician: Admtr, Adonis8 Admitting Physician: AdmtrTaurus Referring Physician: Admtr, Ar8 Encounter Type: Triage Allergies, Adverse Reactions, Alerts [...] Jamar rded influenza virus vaccine, inactivated 04/16/19 Jmaar rded influenza virus vaccine, inactivated 05/04/18 Give [...] 12/12/22 Recorded zoster vaccine, inactivated 07/08/22 Recorded [id number] bivalent booster vax 03/26/22 Recorded SARS-CoV-2 (COVID-19) [...] 08/10/99 Given 1Result Comment: PCV 20 [facility] [id number] 2Result Comment: [facility] [id number] 3Admin Note: VIS GIVEN 4Admin Note: given [...] 11 Refills, Maintenance, 05/10/24 11:14:00 AM EST, [place], [facility], Partial fill [...] PM EDT, Aerosol, Route to Pharmacy Electronically, [id number], [facility]/pharmacy #[id number], 179, cm, 12/12/22 [...] Left lower lobe pulmonary nodule Confirmed Active Perennial allergic rhinitis Confirmed Active Psoriatic arthritis Confirmed Active Stenosis [...] - Primary Care Member Role: PCP Address: [address] [place] [id number] Telecom: Care Team Related Persons Name: NAKUL SABILLON Name: TITO SABILLON Insurance Providers Guarantor name: WILL SABILLON Health Plan Information #: 1 Payer: MEDICARE PART B OUTPT Member Number: NA Policy Number: NA Group Number: NA Health Plan Information #: 2 Payer: [employer] SUP Member Number: NA Policy Number: NA Group Number: NA
--- OUTSIDE RECORDS SUMMARY | 2024-06-22 11:33 | XMS_ITS | Continuity of Care Document ---
Author Organization [facility] Address [address] [place] [address]- Care Team Providers Care Cover Operator Name Role Phone Hector BISWAS, Tommy Primary Care Physician Encounter [facility] Date(s): 05/05/24 - 06/04/24 [facility] [address] [place] [id number] Encounter Type: Triage Allergies, [...] 12/12/22 Recorded zoster vaccine, inactivated 07/08/22 Recorded [id number] bivalent booster vax 03/26/22 Recorded SARS-CoV-2 (COVID-19) [...] (DT) 08/10/99 Given 1Result Comment: PCV 20 [facility] [id number] 2Result Comment: [facility] [id number] 3Admin Note: VIS GIVEN 4Admin Note: given [...] 11 Refills, Maintenance, 05/10/24 11:14:00 AM EST, [place], [facility], Partial fill [...] PM EDT, Aerosol, Route to Pharmacy Electronically, [id number], [facility]/pharmacy #[id number], 179, cm, 12/12/22 10:03:00 EDT, Height [...] Team Personnel Name: Melanie Lai RN Position: [facility] RN Member Role: Primary Care Nurse Name: Vanessa Faith RN Position: [facility] Onco RN Member Role: Primary Care Nurse Name: Martita Houser RN Position: [facility] Onco RN Member Role: Primary Care Nurse Name: Alanis Ohara Position: [facility] AMB Nurse Member Role: Lifetime Consulting Physician Name: Eduar Garsia RN Position: [facility] Onco RN Member Role: Primary Care Nurse Name: Tommy Young MD Position: [facility] Physician - Primary Care Member Role: PCP Address: [address] [place] [address] Telecom: Care Team Related Persons Name: NAKUL SABILLON Name: TITO SABILLON Insurance Providers Guarantor name: WILL SABILLON Health Plan Information #: 1 Payer: MEDICARE PART B OUTPT Member Number: NA Policy Number: NA Group Number: NA Health Plan Information #: 2 Payer: [employer] SUP Member Number: NA Policy Number: NA Group Number: NA
== END 2024-06-22 10:07 | disposition home or self-care (01) ==
LOC: HO.BBR 10:06
PROVIDERS: PCP Internal Medicine; Visit Provider Hospitalist
DX: Z13.89 Encounter for screening for other disorder (principal)

== ENCOUNTER 2024-07-23 09:26 | Outpatient (AMB) | payer MEDICARE, SELFPAY ==
--- NOTE | 2024-07-23 09:32 | HO.NEPHOV_ITS ---
Vital Signs 07/23/24 09:36 Height 5 ft 10 in Weight 178 lb 6 oz BMI 25.6 BP 130/70 Blood Pressure Location Lt brachial Position Sitting Pulse 94 Pulse Source Pulse Oximeter Pulse Oximetry (%) 98 Oxygen Delivery Method Room Air Intake Visit Reasons: CKD/ Conf Detective Investigator Required: No Accompanied by: Self / Same As Patient Allergies No Known Allergies Allergy (Verified 07/23/24 09:36) HPI Comments Details: I would the pleasure of seeing Mik in follow-up of his chronic kidney disease and hypertension. He has been having issues with his arthritis but is closely followed up by his [employer]. He also has been having atypical chest pains which has gone now. His blood pressure is under good control with amlodipine and losartan. His renal functions have been stable. He maintains good hydration and seldom uses nonsteroidal anti-inflammatories. [facility] Medical History (Updated 07/23/24 @ 09:34 by Alanis Ohara MA) Hemochromatosis Hypertension CKD (chronic kidney disease) stage 3, GFR 30-59 ml/min Surgical History History of vasectomy Social History Alcohol intake: never Patient Tobacco Use Status: Former Tobacco user Review of Systems Const All systems reviewed & are unremarkable except as noted in HPI and below Physical Exam Vital Signs: Last Vital Signs Pulse 94 07/23/24 09:36 BP 130/70 07/23/24 09:36 Pulse Ox 98 07/23/24 09:36 Oxygen Delivery Method Room Air 07/23/24 09:36 BMI result Body Mass Index 25.6 Const General: comfortable and no acute distress Orientation/consciousness: patient oriented x3 HEENT Head: Yes normocephalic Mouth: Normal oral and palatal mucosa present Eyes EOM: EOMs intact bilaterally Neck Neck: Yes supple Resp Auscultation: clear to auscultation bilaterally Cardio Jugular venous distension: no JVD Rate: regular rate GI Palpation (GI): Soft to palpation Auscultation: normal bowel sounds General: Yes no CVA tenderness Back/Spine/Pelvis Back: no CVA tenderness Skin General skin exam: no rashes or lesions noted Neuro General: patient oriented x3 and moves all extremities Extrem General: Yes no pedal edema Results Reviewed Nephrology Results: Sodium 140 mmol/L (135-145) 01/15/24 Potassium 4.4 mmol/L (3.3-5.1) 01/15/24 Chloride 105 mmol/L (96-108) 01/15/24 Carbon Dioxide 29 mmol/L (22-29) 01/15/24 BUN 22 mg/dL (9-16) H 01/15/24 Creatinine 1.40 mg/dL (0.5-1.4) 01/15/24 Urine Creatinine 120.24 mg/dL 01/15/24 Protein/Creatinin Ratio TNP 01/15/24 Assessment & Plan Assessment & Plan (1) CKD (chronic kidney disease) stage 3, GFR 30-59 ml/min: Code(s): N18.30 - Chronic kidney disease, stage 3 unspecified Category: Medical Qualifiers: Chronic kidney disease stage 3 subtype: stage 3a (GFR 45-59) Qualified Code(s): N18.31 - Chronic kidney disease, stage 3a (2) Hypertension: Code(s): I10 - Essential (primary) hypertension Category: Medical Qualifiers: Hypertension type: primary hypertension Qualified Code(s): I10 - Essential (primary) hypertension Plan Mik has CKD stage 3 for a long time. His renal functions are pretty stable. His blood pressure is at goal. On angiotensin receptor juan manuel which is tolerating well. His serum potassium has been normal. He maintains good hydration and seldom uses nonsteroidal anti-inflammatories. He should maintain a low-sodium diet. I did not make any medication changes today. I answered all his questions. Follow-up lab work ordered and follow-up appointment was given. Orders: Orders Blood Urea Nitrogen 6 Months I10 - Essential (primary) hypertension, N18.31 - Chronic kidney disease, stage 3a Electrolytes 6 Months I10 - Essential (primary) hypertension, N18.31 - Chronic kidney disease, stage 3a Protein Creatinine Ratio, Ur 6 Months I10 - Essential (primary) hypertension, N18.31 - Chronic kidney disease, stage 3a Creatinine 6 Months I10 - Essential (primary) hypertension, N18.31 - Chronic kidney disease, stage 3a Coding Level of Care Code Est Pt Level 4 (19523) Diagnoses Stage 3a chronic kidney disease N18.31 Chronic kidney disease stage 3 subtype: stage 3a (GFR 45-59) Primary hypertension I10 Hypertension type: primary hypertension
[2024-07-23 09:36] VITALS: BP 130/70; PULSE 94; O2SAT 98; BMI 25.6
--- OUTSIDE RECORDS SUMMARY | 2024-07-23 09:51 | XMS_ITS | Continuity of Care Document ---
Author Organization [facility] (formerly [facility]) Adult Address [address] [place] [address]- Care Team Providers Care Hotel Night Auditor Name Role Phone Hector BISWAS, [id number] Date[facility]s): 03/10/24 - 07/08/[address] [id number] Attending Physician: Not on Staff, Attending MD Encounter Type: Pre Office Visit Allergies, Adverse Reactions, Alerts Substance [...] 12/12/22 Recorded zoster vaccine, inactivated 07/08/22 Recorded [id number] bivalent booster vax 03/26/22 Recorded SARS-CoV-2 (COVID-19) [...] diphtheria-tetanus toxoids (DT) 08/10/99 Given 1Result Comment: [facility] [id number] 2Result Comment: [facility] [id number] 3Admin Note: VIS GIVEN 4Admin Note: given by dr chan 5Admin Note: EXP 01/15/06 - 12/06/06 6Result Comment: PCV 20 [facility] [id number] 7Admin Note: given by lara farrar Medications [...] 11 Refills, Maintenance, 05/10/24 11:14:00 AM EST, [employer], [facility], Partial fill [...] Team Personnel Name: Melanie Lai RN Position: [facility] RN Member Role: Primary Care Nurse Name: Vanessa Faith RN Position: [facility] Onco RN Member Role: Primary Care Nurse Name: Martita Houser RN Position: [facility] Onco RN Member Role: Primary Care Nurse Name: Alanis Ohara Position: [facility] AMB Nurse Member Role: Lifetime Consulting Physician Name: Eduar Garsia RN Position: [facility] Onco RN Member Role: Primary Care Nurse Name: Tommy Young MD Position: [facility] Physician - Primary Care Member Role: PCP Address: [address] [place] [address] Telecom: Care Team Related Persons Name: NAKUL SABILLON Name: TITO SABILLON Insurance Providers Guarantor name: WILL SABILLON Health Plan Information #: 2 Payer: [facility] SUP Member Number: [id number] Policy Number: NA Group Number: NA Health Plan Information #: 1 Payer: MEDICARE PART B OUTPT Member Number: [id number] Policy Number: NA Group Number: NA
--- OUTSIDE RECORDS SUMMARY | 2024-07-23 09:51 | XMS_ITS | Continuity of Care Document ---
Author Organization [facility] Address [address] [place] [address]- Care Team Providers Care Dietician Name Role Phone Hector BISWAS, Tommy Primary Care Physician [phone] Encounter [facility] Date(s): 06/24/23 - 06/25/24 [facility] [address] [place] [address] Discharge Disposition: A-D/C Home Attending Physician: Berenice Castro MD Admitting Physician: Berenice Castro MD Referring Physician: Jacqueline Griggs NP Encounter Type: Disch Recurring OP Allergies, Adverse Reactions, Alerts Substance Criticality Severity [...] 12/12/22 Recorded zoster vaccine, inactivated 07/08/22 Recorded [id number] bivalent booster vax 03/26/22 Recorded SARS-CoV-2 (COVID-19) [...] diphtheria-tetanus toxoids (DT) 08/10/99 Given 1Result Comment: [facility] [id number] 2Result Comment: [facility] [id number] 3Admin Note: VIS GIVEN 4Admin Note: given by dr chan 5Admin Note: EXP 01/15/06 - 12/06/06 6Result Comment: PCV 20 [facility] [id number] 7Admin Note: given by lara farrar Medications [...] 11 Refills, Maintenance, 05/10/24 11:14:00 AM EST, [place], [facility], Partial fill [...] of right subclavian artery Confirmed 06/20/20 Active Vital Signs Most recent to oldest [Reference Range]: 1 2 3 Height 176.9 cm (06/24/24 10:29 AM) 178 cm (05/25/24 10:34 AM) 178 cm (05/05/24 3:02 PM) Weight 78.6 kg (05/05/24 3:02 PM) 77.9 kg (04/23/24 10:44 AM) 81.2 kg (12/31/23 9:10 AM) Oxygen Saturation [94-100 %] 95 % (05/05/24 3:02 PM) 98 % (04/23/24 10:44 AM) 97 % (12/31/23 9:10 AM) Pulse Rate [55-90 bpm] 97 bpm *H* (05/05/24 3:02 PM) 106 bpm *H* (04/23/24 10:44 AM) 93 bpm *H* (12/31/23 9:10 AM) Body Mass Index [18.5-24.99 kg/m2] 24.81 kg/m2 (05/05/24 3:02 PM) 24.59 kg/m2 (04/23/24 10:44 AM) 25.63 kg/m2 *H* (12/31/23 9:10 AM) Blood Pressure [90-138/55-84 mm Hg] 144/74mm Hg *H* (05/05/24 3:02 PM) 134/67mm Hg (04/23/24 10:44 AM) 135/66mm Hg (12/31/23 9:10 AM) Temperature [96.8-100.4 DegF] 97.3 DegF (05/05/24 3:02 PM) 97.2 DegF (04/23/24 10:44 AM) 97.5 DegF (12/31/23 9:10 AM) Mode of Delivery (Oxygen) Room air (05/05/24 3:02 PM) Room air (04/23/24 10:44 AM) Room air (12/31/23 9:10 AM) Blood pressure sites Arm, right (05/05/24 3:02 PM) Arm, left (04/23/24 10:44 AM) Arm, right (12/31/23 9:10 AM) Temperature Route Oral (06/24/24 10:29 AM) Oral (05/25/24 10:34 AM) Temporal (05/05/24 3:02 PM) Dry Weight 78.6 kg (05/05/24 3:02 PM) 77.9 kg (04/23/24 10:44 AM) 81.2 kg (12/31/23 9:10 AM) Weight Obtained Via Standing scale (05/05/24 3:02 PM) Standing scale (04/23/24 10:44 AM) Standing scale (12/31/23 9:10 AM) Dry Weight Obtained Via Standing scale (05/05/24 3:02 PM) Standing scale (04/23/24 10:44 AM) Standing scale (12/31/23 9:10 AM) Social History Social History Type Response Tobacco Other: quit 1990, 20 pack yr history. Sex Sex Representation Male (finding) Consult note * Mk BISWAS, Norma: PERFORM Event Display: Consultation Note Authored Date: [id number] Patient: ??WILL SABILLON ? Age:??79 Years?Sex:??Male?:??1945?? Hematology/Oncology Shared Clinical Summary REASON FOR CONSULATION:??Anemia/ hemochromatosis ?? HPI: 79-year-old male is seen in consultation for anemia as well as hemochromatosis.?? Patient was foundto have B12 deficiency and has been started on??monthly B12 shots.?? 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 His recent ferritin has increased.?? His LFTs are high. ??Liver MRI showed possible iron deposition Review of Systems ENT: No ear discharge, ear pain, no neck swelling, no sore throat. Respiratory: No SOB, cough, sputum production.?? Cardiovascular: No chest pain, palpitations. Gastrointestinal: No abdominal pain, no vomiting, diarrhea.?? Genitourinary: No polyuria, dysuria. Musculoskeletal: No arthralgia, myalgia???s reported. Neuro: No Numbness, no tingling, no motor weakness, no sensory changes. Skin: No rash, pruritus reported. Hematologic: No increased tendency to bleed, purpura noted.?? Psychiatric: No agitated behavior, no depression, anxiety.?? All other systems were reviewed and are negative except for the ones mentioned above. ? Problem List/Past Medical History Ongoing Centrilobular emphysema Esophageal reflux (GERD) Interstitial lung disease Left lower lobe pulmonary nodule Psoriatic arthritis Stage 3a chronic kidney disease (CKD) Stenosis of right subclavian artery Family History COPD: Father. Coronary artery disease: Mother. Fibromyalgia: Mother. Polycythemia: Father. Social History Alcohol Other: none. Employment/School Other: retired sales. Exercise Other: active, but no regular routine. Regular exercise: No. Home/Environment Other: lives with . Nutrition/Health Diet: Regular. Sexual Sexual orientation: Heterosexual. Gender identity: Male. Substance Abuse Other: none. Tobacco Other: quit 1990, 20 pack yr history. Allergies angiotensin converting enzyme inhibitors??(Cough) Medications Inpatient Vitamin B-12 Inj, 1000 mcg= 1 mL, Intramuscular, Every 30 days Home amLODIPine 2.5 mg oral tablet, 2.5 mg= 1 tablet, By Mouth, Daily famotidine 20 mg oral tablet, 20 mg= 1 tablet, By Mouth, Daily, 1 refills fluticasone 50 mcg/inh nasal spray, 2 sprays, Nares, Both, Daily, 11 refills leflunomide 20 mg oral tablet, 20 mg= 1 tablet, By Mouth, Daily losartan 100 mg oral tablet, 100 mg= 1 tablet, By Mouth, Daily ProAir HFA 90 mcg/inh inhalation aerosol with adapter, 2 puffs, Inhalation, Every 4 hours, PRN, 1 refills Vitamin D3 1000 intl units oral tablet, 1000 International_Units= 1 tablet, By Mouth, Daily Physical Exam Vitals & Measurements T:??97.3?F?? HR:??97??(Peripheral)?? BP:??144/74?? SpO2:??95%?? WT:??78.6??kg?? General: A & O X 3, not in acute distress.?? Eye: PERRLA, no redness or discharge HENT: Normocephalic, atraumatic, no bleeding or discharge noted.?? Cardiac: S1, S2 normal, no murmur Resp/Chest wall: CTA, breath sounds normal, no wheeze or ronchi Abdomen: Soft, non tender, no distension, BS +, no organomegaly appreciated.?? Neuro: A & O x 3, no focal deficits Psychiatric: Cooperative, appropriate mood and affect.?? Skin: No rash. Warm to touch Extremities: no pedal edema, no gross deformities noted.?? Lymphatics: No evidence of cervical, axillary or supraclavicular lymphadenopathy Lab Results/Pathology No qualifying data available. Provider Clinical Summary ?? ASSESSMENT 79-year-old male seen in consultation for hemochromatosis as well as anemia.?? His ferritin has increased and he will need phlebotomies.?? He has evidence of iron deposition on the liver MRI. ?? He also has anemia.?? He has multifactorial??could be due to his methotrexate to use??in the past. ?? He also has fatty liver that is could be contributing to his increased LFTs ?? RECOMMENDATION 1.?? Phlebotomy monthly??with a goal ferritin of less than 100.?? He should not get phlebotomy if his hematocrit is less than 30 2.?? Monthly labs 3.?? If his anemia gets worse we could do an EPO level and give Retacrit ?? FOLLOW??UP 3 months ?? TIME SPENT I spent a total of 30?? minutes today reviewing the chart/medical records, speaking with the patient, formulating and discussing the treatment plan, and documenting the findings and encounter. ? Assessment/Plan Orders: CBC w/ Differential CBC w/ Differential CBC w/ Differential CBC w/ Differential Ferritin Ferritin Ferritin Ferritin Iron + Iron Binding Capacity Iron + Iron Binding Capacity Iron + Iron Binding Capacity Iron + Iron Binding Capacity Note * Elma Lawler MA: PERFORM, SIGN, VERIFY Event Display: Patient Education/Instruction Authored Date: [id number] [facility] *Heme/Onc Adult Clinical Summary Name WILL SABILLON Age 78 Years 1945 PCP Indu MICROCOMPUTER SUPPORT SPECIALIST, Jacqueline PCP Visit Date 06/24/2023 08:25:00 Additional Instructions: Scheduled Appointments?? Future Appointments ?*[facility] ?[address]??[place],??[place],??[address] ?Phone:??--?Fax:??-- ?Appt. Date:??10/13/2023?1:05 PM ?Scheduled Provider:??Nida BISWAS, Frankie ?*[facility] ?[address]??[place],??[place],??[address] ?Phone:??--?Fax:??-- ?Appt. Date:??12/10/2023?2:15 PM ?Scheduled Provider:??Ancelmo Moreno MD Follow-Up Instructions ?? With: Address: When: Berenice Castro [address] [facility] 11/10/2023 11:00 AM With: Address: When: Berenice Castro Diagnosis Medications: Please continue your medications until treatment is completed or stopped by your provider. Discuss any questions related to medications with your provider. Medications to Continue with No Changes These medications were not printed or sent to your pharmacy Albuterol (ProAir HFA 90 mcg/inh inhalation aerosol with adapter) 2 puff(s) Inhalation every 4 hours as needed Wheezing/Shortness of Breath. Refills: 1. Next Dose: Amlodipine (amLODIPine 2.5 mg oral tablet) 1 tab(s) Oral Daily. Next Dose: Cholecalciferol (Vitamin D3 1000 intl units oral tablet) 1 tab(s) Oral Daily. Next Dose: Famotidine (famotidine 20 mg oral tablet) 1 tab(s) Oral Daily for 30 Days. Refills: 1. Next Dose: Fluticasone Nasal (fluticasone 50 mcg/inh nasal spray) 2 spray(s) Nares, Both Daily. Refills: 11. Next Dose: Leflunomide (leflunomide 20 mg oral tablet) 1 tab(s) Oral Daily. Next Dose: Leflunomide (leflunomide 20 mg oral tablet) 1 tab(s) Oral Daily. Next Dose: Losartan (losartan 100 mg oral tablet) 1 tab(s) Oral Daily. Next Dose: Omeprazole (omeprazole 20 mg oral enteric coated capsule) 1 capsule Oral Daily. Refills: 1. Next Dose: Allergy Info:?? angiotensin converting enzyme inhibitors Medications Given This Visit Future Orders ?No future orders Future Orders ?No future orders Vital Signs Height 178 cm Weight 81.6 kg BMI 25.75 kg/m2 Blood Pressure 145 mm Hg/83 mm Hg Temperature 97.6 DegF Pulse Rate 92 bpm Respiratory Rate 02 Sat Mode of Delivery 95 %/Room air You can now view a summary of your hospital visit from the comfort of your home through a free online portal called [email or web address]. [employer] is a website that allows you to securely view your medical information including discharge summary, medications and follow-up visits. ??You can alsosend a secure electronic message to your doctor???s office to request appointments, renew medications or just ask a question. You can enroll at [email or web address] or register during your next office visit. Disclaimer:?? The information provided is of a general nature and is intended to be used in conjunction with the recommendations and advice of your health care practitioner. ??Every effort has been made to ensure that the information provided is accurate and complete at the time it is provided to you however, as your needs change, or, as new ??information becomes available, different or additional instructions may be required. If you have questions, please consult with your primary care provider or pharmacist, as appropriate. ??This information is not intended to serve as substitution for assessment and evaluation by a qualified health care provider. If you do not have a primary care provider, you may find a [facility] provider by calling [facility] [employer] Link at [phone]. [facility], in keeping with [facility] guidance, no longer requires face masks for staff, patientsor visitors in most situations. Similar to time spent indoors at other locations, there is the chance that you were exposed to respiratory viruses during your time with us (such as flu or COVID-19).? If you develop symptoms concerning for a viral respiratory infection, please seek testing (and treatment if indicated) from your medical provider or home test kit. For information about the plan of care including goals and instructions for your diagnosis, please see the patient education orders section of this document. Patient Education Materials?? The content of this educational material or handout may have been modified, supplemented, or adapted from its original content and format to support your individualized medical care. Patient Care team information Care Team Personnel Name: Melanie Lai RN Position: [facility] RN Member Role: Primary Care Nurse Name: Vanessa Faith RN Position: [facility] Onco RN Member Role: Primary Care Nurse Name: Martita Houser RN Position: [facility] Onco RN Member Role: Primary Care Nurse Name: Alanis Ohara Position: [facility] AMB Nurse Member Role: Lifetime Consulting Physician Name: Eduar Garsia RN Position: [facility] Onco RN Member Role: Primary Care Nurse Name: Tommy Young MD Position: [facility] Physician - Primary Care Member Role: PCP Address: [address] [place] [address] Telecom: Care Team Related Persons Name: NAKUL SABILLON Name: TITO SABILLON Insurance Providers Guarantor name: WILL SABILLON Health Plan Information #: 1 Payer: MEDICARE PART B OUTPT Member Number: [id number] Policy Number: NA Group Number: NA Health Plan Information #: 2 Payer: [facility] SUP Member Number: [id number] Policy Number: NA Group Number: NA
--- OUTSIDE RECORDS SUMMARY | 2024-07-23 09:51 | XMS_ITS | Clinical Summary ---
Author Organization [facility] Address [address] [place] [address] Phone Care Team Providers Care Medical Assistant Prn Name Role Phone Jacqueline Narayanan Primary Care Provider [phone] Allergies Active Allergy Reactions Criticality Noted Date Comments Ham Inhibitors Other (see comments) 11/22/2020 Medications cholecalciferol (VITAMIN D-3) 25 MCG (1000 UT) capsule Take 1 capsule by mouth 1 (one) time each day Active omeprazole (PriLOSEC) [address] capsule Take 1 capsule by mouth 1 (one) time each day Active albuterol HFA (PROVENTIL HFA;VENTOLIN HFA) 108 (90 Base) MCG/ACT inhaler Inhale 2 puffs every 6 (six) hours if needed for wheezing Active leflunomide (ARAVA) 20 MG tablet Take 20 mg by mouth 1 (one) time each day 06/25/2022 Active losartan (COZAAR) 100 MG tablet Take 1 tablet (100 mg total) by mouth 1 (one) time each day 90 tablet 3 01/29/2023 Active amLODIPine (NORVASC) 5 MG tablet Take 1 tablet (5 mg total) by mouth 1 (one) time each day 90 tablet 3 01/29/2023 Active Active Problems Problem Noted Date Diagnosed Date Chronic kidney disease 06/05/2022 Psoriatic arthritis 06/05/2022 Chronic rhinitis 02/20/2022 Emphysema 02/20/2022 History of polyp of colon 02/20/2022 Obese class I 02/20/2022 Ophthalmic migraine 02/20/2022 Overweight 02/20/2022 Psoriatic arthropathy 02/20/2022 Hypertension 05/23/2021 Stage 3a chronic kidney disease 11/22/2020 Hypertensive renal disease 11/22/2020 Stenosis of right subclavian artery 06/20/2020 Uric acid renal calculus 04/05/2020 Gastroesophageal reflux disease 04/07/2013 Steatosis of liver 12/31/2005 Immunizations Name Administration Dates Next Due DT 08/10/1999 Influenza Whole 04/23/2008 Moderna SARS-COV-2 04/23/2021,09/06/2020, 021 Pneumococcal Conjugate 13-Valent 04/09/2015 Pneumococcal Polysaccharide 04/07/2013 Tdap 10/20/2020,03/28/2011 Zoster 05/01/2009 Family History Relation Status Comments Father Mother Social History Tobacco Use Types Packs/Day Years Used Date Smoking Tobacco: Never Smokeless Tobacco: Never Tobacco Cessation:Counseling Given: Not Answered Alcohol Use Standard Drinks/Week Comments Yes 0 (1 standard drink = 0.6 oz pure alcohol) Alcoholic Drinks/day: Occasional social drink Sex and Gender Information Value Date Recorded Sex Assigned at Not on file Legal Sex Male 4:43 PM EST Gender Identity Not on file Sexual Orientation Not on file Last Filed Vital Signs Vital Sign Reading Time Taken Comments Blood Pressure 152/80 01/29/2023 2:19 PM EDT Pulse 80 01/29/2023 2:19 PM EDT Temperature - - Respiratory Rate - - Oxygen Saturation 98% 05/23/2021 2:01 PM EST Inhaled Oxygen Concentration - - Weight 86 kg (189 lb 9.6 oz) 01/29/2023 2:19 PM EDT Height 177.8 cm (5' 10 ) 03/29/2020 12:00 PM EDT Body Mass Index 27.2 03/29/2020 12:00 PM EDT Plan of Treatment Health Maintenance Due Date Last Done Comments Influenza Vaccine (#1) 2024 04/23/2008 Pneumococcal Vaccine: 65+ Years Completed 04/09/2015, 04/07/2013 Hepatitis B Vaccine Aged Out No longe r eligible based on patient's age to complete this topic Insurance [facility] Member Subscriber Plan / Payer (Ef fective 2020-Present) Name:Mik Lei Relation to Subscriber:Self Name:Mik Lei Payer ID:[id number] (NAIC) Group ID:Not on file Type:Not on file Address: [address] [place] [id number] MEDICARE [facility] MEDICARE Care Teams Medical Assistant Prn Relationship Specialty Start Date End Date Jacqueline Narayanan [address] [place] [address] [id number] [facility] - General 01/29/23
== END 2024-07-23 09:57 | disposition home or self-care (01) ==
PROVIDERS: PCP Internal Medicine; Visit Provider Internal Medicine Nephrology
DX: N18.31 Chronic kidney disease, stage 3a (principal); I10 Essential (primary) hypertension
CPT/HCPCS: 99214

== ENCOUNTER → 2024-07-23 09:26 | Outpatient (BNVA) | payer MEDICARE, SELFPAY | PROVIDERS: PCP Internal Medicine; Visit Provider Internal Medicine Nephrology | DX: I12.9 Hypertensive chronic kidney disease with stage 1 through stage 4 chronic kidney disease, or unspecified chronic kidney disease (principal); N18.31 Chronic kidney disease, stage 3a | CPT/HCPCS: 99212 ==

== ENCOUNTER 2024-07-27 10:47 | Outpatient (REF) | payer MEDICARE, SELFPAY ==
--- OUTSIDE RECORDS SUMMARY | 2024-07-27 11:58 | XMS_ITS | Clinical Summary ---
Author Organization [facility] Address [address] [place] [address] Phone Care Team Providers Care Traveling Operator Name Role Phone Jacqueline Narayanan Primary Care Provider [phone] Allergies Active Allergy Reactions Criticality Noted Date [...] patient's age to complete this topic Insurance [facility] Member Subscriber Plan / Payer (Ef fective 2020-Present) Name:Mik Lei Relation to Subscriber:Self Name:Mik Lei Payer ID:[id number] (NAIC) Group ID:Not on file Type:Not on file Address: [address] [place] [id number] MEDICARE [facility] MEDICARE Care Teams Traveling Operator Relationship Specialty Start Date End Date Jacqueline Narayanan [address] [place] [phone] [facility] - General 01/29/23
== END 2024-07-27 10:48 | disposition home or self-care (01) ==
LOC: HO.BBR 10:47
PROVIDERS: PCP Internal Medicine; Visit Provider Hospitalist
DX: Z13.89 Encounter for screening for other disorder (principal)

== ENCOUNTER 2024-08-24 10:51 | Outpatient (REF) | payer MEDICARE, SELFPAY ==
[2024-08-24 11:02] LABS: MANUAL DIFF FLAG NO
[2024-08-24 11:03] LABS: Basophils Absolute Auto 0.1 X10*3/uL (0.0-0.2); Basophils Percent Auto 0.8 % (0-2); Eosinophils Absolute Auto 0.2 X10*3/uL (0.0-0.4); Eosinophils Percent Auto 3.2 % (0-4); Hematocrit 33.8 % (42.0-52.0); Hemoglobin 11.5 g/dl (14.0-18.0); Imm Gran Abs Auto 0.01 X10*3/uL (0.00-0.03); Imm Gran Pct Auto 0.2 % (0.0-0.4); Lymphocytes Absolute Auto 1.3 X10*3/uL (1.2-4.9); Lymphocytes Percent Auto 21.4 % (20-40); Mean Corpuscular Hemoglobin 30.8 pg (27.0-33.0); Mean Corpuscular Volume 90.6 fL (80.0-98.0); Mean Platelet Volume 9.7 fL (9.4-12.4); Monocytes Absolute Auto 0.5 X10*3/uL (0.1-1.2); Monocytes Percent Auto 7.5 % (2-11); Neutrophils Percent Auto 66.9 % (45-73); Platelet Count 187 X10*3/uL (160-400); Red Blood Count 3.73 X10*6/uL (4.60-5.80); Red Cell Distribution Width 13.7 % (11.0-16.0)
[2024-08-24 11:54] LABS: Iron 137 mcg/dL (45-160); Percent Iron Saturation 49 % (15-50); Total Iron Binding Capacity 281 mcg/dL (228-428); Unsaturated Iron Binding 144 ug/dL
[2024-08-24 12:08] LABS: Ferritin 199 ng/mL (20-250)
== END 2024-08-24 10:52 | disposition home or self-care (01) ==
LOC: HO.BBR 10:51
PROVIDERS: PCP Internal Medicine; Visit Provider Hospitalist
DX: E83.110 Hereditary hemochromatosis (principal)
CPT/HCPCS: 36415; 82728; 83540; 85025

== ENCOUNTER 2024-09-29 11:01 | Outpatient (REF) | payer MEDICARE, SELFPAY ==
[2024-09-29 11:10] LABS: MANUAL DIFF FLAG NO
[2024-09-29 11:15] LABS: Basophils Absolute Auto 0.1 X10*3/uL (0.0-0.2); Basophils Percent Auto 0.9 % (0-2); Eosinophils Absolute Auto 0.2 X10*3/uL (0.0-0.4); Eosinophils Percent Auto 2.7 % (0-4); Hematocrit 33.8 % (42.0-52.0); Hemoglobin 11.3 g/dl (14.0-18.0); Imm Gran Abs Auto 0.01 X10*3/uL (0.00-0.03); Imm Gran Pct Auto 0.2 % (0.0-0.4); Lymphocytes Absolute Auto 1.2 X10*3/uL (1.2-4.9); Lymphocytes Percent Auto 22.2 % (20-40); Mean Corpuscular HGB Conc 33.4 g/dl (31.0-36.0); Mean Corpuscular Hemoglobin 30.8 pg (27.0-33.0); Mean Corpuscular Volume 92.1 fL (80.0-98.0); Mean Platelet Volume 10.1 fL (9.4-12.4); Monocytes Absolute Auto 0.5 X10*3/uL (0.1-1.2); Monocytes Percent Auto 8.5 % (2-11); Neutrophils Absolute Auto 3.6 x10*3/uL (2.0-8.3); Neutrophils Percent Auto 65.5 % (45-73); Platelet Count 189 X10*3/uL (160-400); Red Blood Count 3.67 X10*6/uL (4.60-5.80); Red Cell Distribution Width 13.6 % (11.0-16.0); White Blood Count 5.5 X10*3/uL (4.8-10.8)
[2024-09-29 12:29] LABS: Iron 169 mcg/dL (45-160); Percent Iron Saturation 59 % (15-50); Total Iron Binding Capacity 288 mcg/dL (228-428); Unsaturated Iron Binding 119 ug/dL
[2024-09-29 12:48] LABS: Ferritin 106 ng/mL (20-250)
--- OUTSIDE RECORDS SUMMARY | 2024-09-29 13:18 | XMS_ITS | Clinical Summary ---
Author Organization [facility] Address [address] [place] [address] Phone Care Team Providers Care Hide Dyer Name Role Phone Jacqueline Narayanan Primary Care Provider [phone] Allergies Active Allergy Reactions Criticality Noted Date [...] disease 04/07/2013 Steatosis of liver 12/31/2005 Immunizations Immunization Administration Dates Next Due DT 08/10/1999 Influenza [...] Due Date Last Done Comments Influenza Vaccine (Season Ended) 2025 04/23/2008 Pneumococcal Vaccine: 50+ Years Completed 04/09/2015, 04/07/2013 Pneumococcal Vaccine: Peds (0 to 5 Years) and At-Risk Patients (6 to 49 Years) Discontinued 04/09/2015, 04/07/2013 Hepatitis B Vaccine Aged Out No longe r eligible based on patient's age to complete this topic Insurance [facility] Medicare [facility] Medicare Care Teams Hide Dyer Relationship Specialty Start Date End Date Jacqueline Narayanan [address] [place] [id number] PCP - General 01/29/23
== END 2024-09-29 11:02 | disposition home or self-care (01) ==
LOC: HO.BBR 11:01
PROVIDERS: PCP Internal Medicine; Visit Provider Hospitalist
DX: E83.110 Hereditary hemochromatosis (principal)
CPT/HCPCS: 36415; 82728; 83540; 85025

== ENCOUNTER 2024-11-02 14:54 | Outpatient (REF) | payer MEDICARE, SELFPAY ==
[2024-11-02 15:06] LABS: MANUAL DIFF FLAG NO
[2024-11-02 15:07] LABS: Basophils Absolute Auto 0.1 X10*3/uL (0.0-0.2); Eosinophils Absolute Auto 0.3 X10*3/uL (0.0-0.4); Eosinophils Percent Auto 4.1 % (0-4); Hematocrit 33.5 % (42.0-52.0); Hemoglobin 11.3 g/dl (14.0-18.0); Imm Gran Abs Auto 0.03 X10*3/uL (0.00-0.03); Imm Gran Pct Auto 0.4 % (0.0-0.4); Lymphocytes Absolute Auto 1.7 X10*3/uL (1.2-4.9); Lymphocytes Percent Auto 25.4 % (20-40); Mean Corpuscular HGB Conc 33.7 g/dl (31.0-36.0); Mean Corpuscular Hemoglobin 30.5 pg (27.0-33.0); Mean Corpuscular Volume 90.3 fL (80.0-98.0); Mean Platelet Volume 9.7 fL (9.4-12.4); Monocytes Absolute Auto 0.6 X10*3/uL (0.1-1.2); Monocytes Percent Auto 8.9 % (2-11); Neutrophils Absolute Auto 4.1 x10*3/uL (2.0-8.3); Neutrophils Percent Auto 60.2 % (45-73); Platelet Count 203 X10*3/uL (160-400); Red Blood Count 3.71 X10*6/uL (4.60-5.80); Red Cell Distribution Width 13.6 % (11.0-16.0); White Blood Count 6.8 X10*3/uL (4.8-10.8)
[2024-11-02 16:21] LABS: Iron 93 mcg/dL (45-160); Percent Iron Saturation 31 % (15-50); Total Iron Binding Capacity 296 mcg/dL (228-428); Unsaturated Iron Binding 203 ug/dL
[2024-11-02 16:35] LABS: Ferritin 45 ng/mL (20-250)
== END 2024-11-02 14:55 | disposition home or self-care (01) ==
LOC: HO.BBR 14:54
PROVIDERS: PCP Internal Medicine; Referring Provider Internal Medicine; Visit Provider Hospitalist
DX: E83.119 Hemochromatosis, unspecified (principal)
CPT/HCPCS: 36415; 82728; 83540; 85025

== ENCOUNTER 2025-01-06 14:45 | Outpatient (REF) | payer MEDICARE, SELFPAY ==
--- OUTSIDE RECORDS SUMMARY | 2025-01-06 14:49 | XMS_ITS | Clinical Summary ---
Author Organization [facility] Address [address] [place] [address] Phone Care Team Providers Care Shipping Coordinator Name Role Phone Jacqueline Narayanan Primary Care Provider [phone] Allergies Active Allergy Reactions Criticality Noted Date [...] Date Last Done Comments Influenza Vaccine (#1) 2025 04/23/2008 Pneumococcal Vaccine: 50+ Years Completed 04/09/2015, 04/07/2013 Pneumococcal Vaccine: Peds (0 to 5 Years) and At-Risk Patients (6 to 49 Years) Discontinued 04/09/2015, 04/07/2013 Hepatitis B Vaccine Aged Out No longe r eligible based on patient's age to complete this topic Insurance [facility] Medicare [facility] Medicare Care Teams Shipping Coordinator Relationship Specialty Start Date End Date Jacqueline Narayanan [address] [place] [id number] PCP - General 01/29/23
== END 2025-01-06 14:46 | disposition home or self-care (01) ==
LOC: HO.BBR 14:45
PROVIDERS: PCP Internal Medicine; Visit Provider Hospitalist
DX: Z13.89 Encounter for screening for other disorder (principal)

== ENCOUNTER 2025-02-23 14:29 | Outpatient (AMB) | payer MEDICARE, SELFPAY ==
--- NOTE | 2025-02-23 14:48 | HO.NEPHOV_ITS ---
Vital Signs 02/23/25 14:50 Height 5 ft 10 in Weight 185 lb BMI 26.5 BP 116/60 Blood Pressure Location Lt brachial Position Sitting Pulse 85 Pulse Source Pulse Oximeter Pulse Oximetry (%) 98 Oxygen Delivery Method Room Air Intake Visit Reasons: CKD- CONF Office Nurse Practitioner Required: No Accompanied by: Self / Same As Patient Allergies No Known Allergies Allergy (Verified 02/23/25 14:50) HPI Comments Details: I would the pleasure of seeing Mik in follow-up of his chronic kidney disease and hypertension. 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 He also has been having atypical chest pains which has gone now. His blood pressure is under good control with amlodipine and losartan. His renal functions have been stable. He maintains good hydration and seldom uses nonsteroidal anti-inflammatories. [facility] Medical History (Updated 07/23/24 @ 09:34 by Alanis Ohara MA) Hemochromatosis Hypertension CKD (chronic kidney disease) stage 3, GFR 30-59 ml/min Surgical History History of vasectomy Social History Alcohol intake: never Patient Tobacco Use Status: Former Tobacco user Review of Systems Const All systems reviewed & are unremarkable except as noted in HPI and below Physical Exam Vital Signs: Last Vital Signs Pulse 85 02/23/25 14:50 BP 116/60 02/23/25 14:50 Pulse Ox 98 02/23/25 14:50 Oxygen Delivery Method Room Air 02/23/25 14:50 BMI result Body Mass Index 26.5 Const General: comfortable and no acute distress Orientation/consciousness: patient oriented x3 HEENT Head: Yes normocephalic Mouth: Normal oral and palatal mucosa present Eyes EOM: EOMs intact bilaterally Neck Neck: Yes supple Resp Auscultation: clear to auscultation bilaterally Cardio Jugular venous distension: no JVD Rate: regular rate GI Palpation (GI): Soft to palpation Auscultation: normal bowel sounds General: Yes no CVA tenderness Back/Spine/Pelvis Back: no CVA tenderness Skin General skin exam: no rashes or lesions noted Neuro General: patient oriented x3 and moves all extremities Extrem General: Yes no pedal edema Assessment & Plan Assessment & Plan (1) CKD (chronic kidney disease) stage 3, GFR 30-59 ml/min: Code(s): N18.30 - Chronic kidney disease, stage 3 unspecified Category: Medical Qualifiers: Chronic kidney disease stage 3 subtype: stage 3a (GFR 45-59) Qualified Code(s): N18.31 - Chronic kidney disease, stage 3a (2) Hypertension: Code(s): I10 - Essential (primary) hypertension Category: Medical Qualifiers: Hypertension type: primary hypertension Qualified Code(s): I10 - Essential (primary) hypertension Plan Mik has CKD stage 3 for a long time. His renal functions are pretty stable. His blood pressure is at goal. On angiotensin receptor juan manuel which is tolerating well. His serum potassium has been normal. He maintains good hydration and seldom uses nonsteroidal anti-inflammatories. He should maintain a low-sodium diet. I did not make any medication changes today. I answered all his questions. Follow-up lab work ordered and follow-up appointment was given. Orders: Orders Creatinine 6 Months I10 - Essential (primary) hypertension, N18.31 - Chronic kidney disease, stage 3a Blood Urea Nitrogen 6 Months I10 - Essential (primary) hypertension, N18.31 - Chronic kidney disease, stage 3a Electrolytes 6 Months I10 - Essential (primary) hypertension, N18.31 - Chronic kidney disease, stage 3a Calcium 6 Months I10 - Essential (primary) hypertension, N18.31 - Chronic kidney disease, stage 3a Parathyroid Hormone Intact 6 Months I10 - Essential (primary) hypertension, N18.31 - Chronic kidney disease, stage 3a Vitamin D 25-OH Total 6 Months I10 - Essential (primary) hypertension, N18.31 - Chronic kidney disease, stage 3a Medications: Refilled losartan 100 mg PO DAILY 90 tabs 4RF Coding Level of Care Code Est Pt Level 4 (53051) Diagnoses Stage 3a chronic kidney disease N18.31 Chronic kidney disease stage 3 subtype: stage 3a (GFR 45-59) Primary hypertension I10 Hypertension type: primary hypertension
[2025-02-23 14:50] VITALS: BP 116/60; PULSE 85; O2SAT 98; BMI 26.5
--- OUTSIDE RECORDS SUMMARY | 2025-02-23 18:13 | XMS_ITS | Clinical Summary ---
Author Organization [facility] Address [address] [place] [address] Phone Care Team Providers Care [employer] Physical Education Teacher Name Role Phone Jacqueline Narayanan Primary Care Provider [phone] Allergies Active Allergy Reactions Criticality Noted Date [...] patient's age to complete this topic Insurance [facility] Medicare [facility] Medicare Care Teams [employer] Physical Education Teacher Relationship Specialty Start Date End Date Narayanan, Jacqueline Genna [address] [place] [id number] PCP - General 01/29/23
== END 2025-02-23 15:09 | disposition home or self-care (01) ==
LOC: HO.HKA 14:30
PROVIDERS: PCP Internal Medicine; Visit Provider Internal Medicine Nephrology
DX: N18.31 Chronic kidney disease, stage 3a (principal); I10 Essential (primary) hypertension
CPT/HCPCS: 99214

== ENCOUNTER → 2025-02-23 14:29 | Outpatient (BNVA) | payer MEDICARE, SELFPAY | PROVIDERS: PCP Internal Medicine; Visit Provider Internal Medicine Nephrology | DX: I12.9 Hypertensive chronic kidney disease with stage 1 through stage 4 chronic kidney disease, or unspecified chronic kidney disease (principal); N18.31 Chronic kidney disease, stage 3a | CPT/HCPCS: 99212 ==